=== PATIENT | female | born 1995 | race African-American/Black ===

== ENCOUNTER 2017-07-10 11:49 | Emergency (ER) | payer MEDICAID, OTHER ==
[~2017-07-10] VITALS: Ht 162.6 cm; Wt 50.0 kg
[2017-07-10 12:11] VITALS: BP 113/78
[2017-07-10] MEDS ORDERED: IBUPROFEN 200 MG TABLET ONE (12:39)
[2017-07-10] MEDS ORDERED: ACETAMINOPHEN 325 MG TABLET ONE (12:39)
[2017-07-10] MEDS ORDERED: ACETAMINOPHEN 325 MG TABLET PO ONE (13:00)
[2017-07-10] MEDS ORDERED: IBUPROFEN 200 MG TABLET PO ONE (13:00)
[2017-07-10 13:33] LABS: RAPID INFLUENZA A Negative (Negative); RAPID INFLUENZA B Negative (Negative)
== END 2017-07-10 12:45 | disposition home or self-care (01) ==
LOC: ED 12:39
DX: J02.0 Streptococcal pharyngitis (principal)
CPT/HCPCS: 71020; 87400; 87880; 99285